=== PATIENT | male | born 1980 ===

== ENCOUNTER 2020-06-11 17:52 | Outpatient (CLI) | payer MEDICAID, SELFPAY ==
[2020-06-11 18:43] LABS: Urine Appearance Clear (CLEAR); Urine Color Yellow (Yellow); pH Urine 5 (5-7)
[2020-06-11 18:44] LABS: Add Urine Microscopic? YES; Bilirubin Urine Neg (Negative); Blood Urine Trace (Negative); Glucose Urine UA Norm (Normal); Ketones Urine Negative (Negative); Leukocyte Esterase Urine Negative (Negative); Nitrate Urine Negative (Negative); Protein Urine Neg (Negative); Urobilinogen Urine 1 mg/dL (Negative)
[2020-06-11 18:46] LABS: Add Urine Culture? No; Bacteria Urine 2+ /hpf; Squamous Epithelial Cell Urine 0-4 /hpf (0-5); WBC Urine 0-4 /hpf (0-5)
== END 2020-06-11 17:53 | disposition home or self-care (01) ==
LOC: LAB 17:55
PROVIDERS: PCP Family Medicine; Visit Provider Family Medicine
DX: G93.1 Anoxic brain damage, not elsewhere classified (principal)
CPT/HCPCS: 81001; 87077; 87086; 87186

== ENCOUNTER → 2022-05-23 16:02 | Outpatient (BNVA) | payer MEDICAID, SELFPAY | PROVIDERS: PCP Family Medicine; Visit Provider Specialist | DX: G93.1 Anoxic brain damage, not elsewhere classified (principal); Z93.0 Tracheostomy status; Z93.1 Gastrostomy status; S06.2X6S Diffuse traumatic brain injury with loss of consciousness greater than 24 hours without return to pre-existing conscious level with patient surviving, sequela; V86.59XS Driver of other special all-terrain or other off-road motor vehicle injured in nontraffic accident, sequela | CPT/HCPCS: 99213 ==

== ENCOUNTER → 2022-09-20 16:15 | Outpatient (BNVA) | payer MEDICAID, SELFPAY | PROVIDERS: PCP Family Medicine; Visit Provider Specialist | DX: G93.1 Anoxic brain damage, not elsewhere classified (principal); R40.3 Persistent vegetative state; S06.2X6S Diffuse traumatic brain injury with loss of consciousness greater than 24 hours without return to pre-existing conscious level with patient surviving, sequela; V86.59XS Driver of other special all-terrain or other off-road motor vehicle injured in nontraffic accident, sequela; Z93.0 Tracheostomy status; Z93.1 Gastrostomy status | CPT/HCPCS: 99213 ==

== ENCOUNTER → 2023-04-10 17:03 | Outpatient (BNVA) | payer MEDICARE, MEDICAID, SELFPAY | PROVIDERS: Visit Provider Specialist | DX: R40.3 Persistent vegetative state (principal); Z93.0 Tracheostomy status; Z93.1 Gastrostomy status | CPT/HCPCS: 99214 ==

== ENCOUNTER → 2023-05-29 15:30 | Outpatient (BNVA) | payer MEDICARE, MEDICAID, SELFPAY | PROVIDERS: Visit Provider Surgery | DX: Z43.1 Encounter for attention to gastrostomy (principal); G93.1 Anoxic brain damage, not elsewhere classified; R40.3 Persistent vegetative state; Z93.0 Tracheostomy status | CPT/HCPCS: 43762; 99203 ==

== ENCOUNTER 2023-08-20 01:12 | Emergency (ER) | payer MEDICARE, MEDICAID, SELFPAY ==
[2023-08-20] VITALS (7 sets, daily range): BP systolic 101–151; BP diastolic 65–81; PULSE 71–151; RESP 14–22; TEMP 37.7; O2SAT 95–97; BMI 27.6
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
--- NOTE | 2023-08-20 01:25 | PC.NURSE ---
seizure pads placed on bedrail. Dr. Shoemaker in room. at bedside at this time.
[2023-08-20 01:39] LABS: Basophils # 0.1 10^3/uL (0.0-0.1); Basophils % 0.5 %; Eosinophils % 0.1 %; Hematocrit 41.9 % (37-53); Lymphocytes # 1.2 10^3/uL (0.8-4.8); Lymphocytes % 11.4 %; Mean Corpuscular HGB Conc 32.7 g/dL (30-55); Mean Corpuscular Hemoglobin 28.1 pg (27-33); Mean Corpuscular Volume 85.9 fl (82-101); Mean Platelet Volume 9.2 fL (7.4-10.4); Monocytes # 0.9 10^3/uL (0.2-0.9); Monocytes % 9.2 %; Neutrophils # 8.08 10^3/uL (1.8-7.7); Neutrophils % 78.6 %; Nucleated Red Blood Cells % 0 %; Platelet Count 497 10^3/cmm (157-399); Red Blood Count 4.88 10^6/uL (3.85-5.65); Red Cell Distribution Width 14.6 % (12.1-15.1); White Blood Count 10.27 10^3/uL (3.29-11.43)
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
[2023-08-20 02:01] LABS: INR 0.97 (0.8-1.2); Lactic Sepsis W/Reflex 3.2 mmol/L (0.5-2.2); Partial Thromboplastin Time 28.1 SECONDS (23.9-36.7)
[2023-08-20 02:02] LABS: Alanine Aminotransferase 9 U/L (0-41); Albumin Level 3.5 g/dL (3.5-5.2); Alkaline Phosphatase 104 U/L (40-130); Anion Gap 16.2 (5-19); Aspartate Amino Transferase 14 U/L (0-40); Blood Urea Nitrogen 17 mg/dL (6-20); C Reactive Protein 24.6 mg/L (0.0-4.9); Calcium 9.1 mg/dL (8.5-10.5); Carbon Dioxide 27 mmol/L (22-29); Chloride 95 mmol/L (98-107); Globulin 3.5 g/dL (1.3-4.6); Glomerular Filtration Rate 180.6 mL/min (90-130); Glucose 128 mg/dL (65-115); Osmolality Calculated 281 mOsm/kg (285-295); Phosphorus 2.5 mg/dL (2.5-4.5); Potassium 4.2 mmol/L (3.5-5.1); Sodium 134 mmol/L (136-145); Total Bilirubin 0.2 mg/dL (0.15-1.2)
[2023-08-20 02:08] LABS: ABG PCO2 43.7 mmHg (35-45); ABG PH Result 7.45 (7.35-7.45); Arterial Blood Gas Hematocrit 42.1 % (42-52); Base Excess ABG 5.9 mmol/L (-2.0-2.0); Blood Gas Sample Site Brachial, left; Blood Gas Sample Type Arterial; Carboxyhemoglobin 0.8 %THgb (0.4-20.1); HCO3 ABG 30.6 mmol/L (22-26); HGB O2 Sat 95.7 % (95-100); Methemoglobin 0.5 % (0.4-1.5); Oxygen Device ROOM AIR; PO2 ABG 76.8 mmHg (80.0-100.0); Total Hemoglobin 13.7 g/dL (14-18)
[2023-08-20 03:02] LABS: Add Urine Microscopic? YES; Bilirubin Urine Neg (Negative); Blood Urine 3+ (Negative); Glucose Urine UA Norm (Normal); Ketones Urine Negative (Negative); Leukocyte Esterase Urine 2+ (Negative); Nitrate Urine Negative (Negative); Protein Urine 1+ (Negative); Specific Gravity, Urine 1.005 (1.005-1.030); Urine Appearance Cloudy (CLEAR); Urine Color Yellow (Yellow); Urobilinogen Urine Neg (Negative); pH Urine 7 (5-7)
[2023-08-20 03:03] LABS: Add Urine Culture? Yes; Amorphous Sediment Urine 2+ /hpf; Bacteria Urine 2+ /hpf; RBC Urine TOO NUMEROUS TO CNT /hpf (0-2); WBC Urine TOO NUMEROUS TO CNT /hpf (0-5)
[2023-08-20 03:24] LABS: Reflex Lactate Order REFLEX LACTIC ORDERD
[2023-08-20] MEDS: cefTRIAXone 1,000 MG in sodium chloride 0.9% (plus) 50 ML 100 MG IV (03:51)
== END 2023-08-20 08:25 | disposition home or self-care (01) ==
PROVIDERS: Emergency Provider Emergency Medicine
DX: G40.409 Other generalized epilepsy and epileptic syndromes, not intractable, without status epilepticus (principal); N39.0 Urinary tract infection, site not specified
CPT/HCPCS: 36415; 70450; 71045; 80053; 81001; 82805; 83605; 83735; 84100; 85025; 85610; 85730; 86140; 87077; 87086; 87186; 96365; 96366; 96367; 99285; 99291; J0696; J1953